=== PATIENT | female | born 1940 | race Caucasian/White ===

== ENCOUNTER 2018-09-23 12:21 | Emergency (ER) | payer MEDICARE, OTHER ==
[~2018-09-23] VITALS: Ht 157.5 cm; Wt 55.0 kg
[2018-09-23 16:00] VITALS: BP 161/90
== END 2018-09-23 16:50 | disposition home or self-care (01) ==
LOC: ED 16:15
DX: S30.0XXA Contusion of lower back and pelvis, initial encounter (principal); S09.8XXA Other specified injuries of head, initial encounter; R51 Headache; W18.30XA Fall on same level, unspecified, initial encounter; Y93.89 Activity, other specified; Y92.000 Kitchen of unspecified non-institutional (private) residence as the place of occurrence of the external cause; Y99.8 Other external cause status
CPT/HCPCS: 36415; 70450; 72110; 72125; 72220; 80048; 85025; 85610; 85730; 93005; 99284